=== PATIENT | female | born 1995 | race Two or more races ===

== ENCOUNTER 2021-08-27 08:19 | Outpatient (CLI) | payer OTHER | END 2021-08-27 09:45 | disposition home or self-care (01) | LOC: PRENATAL 08:19 | PROVIDERS: ATTEND Obstetrics & Gynecology Maternal & Fetal Medicine | DX: O36.80X0 Pregnancy with inconclusive fetal viability, not applicable or unspecified (principal); Z3A.12 12 weeks gestation of pregnancy; Z88.6 Allergy status to analgesic agent; Z91.040 Latex allergy status; Z91.018 Allergy to other foods; Z88.0 Allergy status to penicillin; Z88.8 Allergy status to other drugs, medicaments and biological substances ==

== ENCOUNTER 2021-10-22 07:50 | Outpatient (CLI) | payer OTHER | END 2021-10-22 09:05 | disposition home or self-care (01) | LOC: PRENATAL 07:50 | PROVIDERS: ATTEND Obstetrics & Gynecology Maternal & Fetal Medicine | DX: O26.849 Uterine size-date discrepancy, unspecified trimester (principal); O35.0XX0 Maternal care for (suspected) central nervous system malformation in fetus, not applicable or unspecified; Z3A.36 36 weeks gestation of pregnancy ==

== ENCOUNTER 2021-11-11 00:50 | Outpatient (CLI) | payer OTHER ==
[2021-11-11] MEDS ORDERED: PRENATA CHEWAB1 EACH (01:25)
[2021-11-11] MEDS ORDERED: IRON236 MG (01:25)
== END 2021-11-11 18:40 | disposition home or self-care (01) ==
LOC: OBS/DEL 00:50
PROVIDERS: ATTEND Obstetrics & Gynecology
DX: O26.899 Other specified pregnancy related conditions, unspecified trimester (principal); O60.00 Preterm labor without delivery, unspecified trimester; Z3A.23 23 weeks gestation of pregnancy

== ENCOUNTER 2021-11-12 22:06 | Outpatient (CLI) | payer OTHER ==
[~2021-11-12 22:06] MED LIST: IRON236 MG; PRENATA CHEWAB1 EACH
== END 2021-11-12 23:40 | disposition home or self-care (01) ==
LOC: OBS/DEL 22:06
PROVIDERS: ATTEND Obstetrics & Gynecology
DX: O62.9 Abnormality of forces of labor, unspecified (principal); Z3A.23 23 weeks gestation of pregnancy

== ENCOUNTER 2021-11-13 16:30 | Outpatient (CLI) | payer OTHER | END 2021-11-14 16:56 | disposition home or self-care (01) | LOC: OBS/DEL 16:30 | PROVIDERS: ATTEND Obstetrics & Gynecology | DX: O23.42 Unspecified infection of urinary tract in pregnancy, second trimester (principal); N39.0 Urinary tract infection, site not specified; Z3A.23 23 weeks gestation of pregnancy ==

== ENCOUNTER 2022-01-28 08:40 | Outpatient (CLI) | payer OTHER | END 2022-01-28 11:40 | disposition home or self-care (01) | LOC: PRENATAL 08:40 | PROVIDERS: ATTEND Obstetrics & Gynecology Maternal & Fetal Medicine | DX: O36.8199 Decreased fetal movements, unspecified trimester, other fetus (principal); Z3A.34 34 weeks gestation of pregnancy ==

== ENCOUNTER 2022-02-10 08:56 | Outpatient (CLI) | payer OTHER | END 2022-02-10 10:47 | disposition home or self-care (01) | LOC: PRENATAL 08:56 | PROVIDERS: ATTEND Obstetrics & Gynecology Maternal & Fetal Medicine | DX: O36.8199 Decreased fetal movements, unspecified trimester, other fetus (principal); Z3A.36 36 weeks gestation of pregnancy ==

== ENCOUNTER 2022-02-21 12:40 | Outpatient (CLI) | payer OTHER | END 2022-02-22 12:55 | disposition home or self-care (01) | LOC: OBS/DEL 12:40 | PROVIDERS: ATTEND Obstetrics & Gynecology | DX: O47.1 False labor at or after 37 completed weeks of gestation (principal); Z3A.38 38 weeks gestation of pregnancy; R10.2 Pelvic and perineal pain; Z91.018 Allergy to other foods; Z88.0 Allergy status to penicillin; Z91.041 Radiographic dye allergy status; Z88.6 Allergy status to analgesic agent; Z91.040 Latex allergy status; Z20.822 Contact with and (suspected) exposure to COVID-19 ==

== ENCOUNTER 2022-03-02 05:52 | Inpatient (IN) | payer OTHER ==
[~2022-03-02] VITALS: Ht 162.6 cm; Wt 2.7 kg
== END 2022-03-06 16:21 | disposition home or self-care (01) | DRG 788 ==
LOC: LDR 05:52 → O/R 17:48 → OB/GYN 20:02
PROVIDERS: ADMIT Obstetrics & Gynecology; ATTEND Obstetrics & Gynecology
PROC: 4A1HXCZ Monitoring of Products of Conception, Cardiac Rate, External Approach (ICD-10-PCS; 2022-03-02)
PROC: 10D00Z1 Extraction of Products of Conception, Low, Open Approach (ICD-10-PCS; principal; 2022-03-02 17:15)
DX: O36.8330 Maternal care for abnormalities of the fetal heart rate or rhythm, third trimester, not applicable or unspecified (principal); Z3A.39 39 weeks gestation of pregnancy; Z37.0 Single live birth; Z20.822 Contact with and (suspected) exposure to COVID-19